=== PATIENT | female | born 1990 | race Caucasian/White ===

== ENCOUNTER 2025-01-23 18:34 | Emergency (ER) | payer OTHER ==
[~2025-01-23] VITALS: Ht 162.6 cm; Wt 61.4 kg
[2025-01-23 21:20] VITALS: TEMP 98.1
[2025-01-23] MEDS: PERTUSS(ACELL),DIPH,TET/PF 0.5 ML SYRINGE [ADULT] IM. ONE (21:47)
[2025-01-23] MEDS: IBUPROFEN 600 MG TABLET PO ONE (21:51)
[2025-01-23 23:45] VITALS: BP 115/70; PULSE 81; RESP 14; O2SAT 99
[2025-01-23] MEDS: BACITRACIN 0.9 GM PACKET OINTMENT TP ONE (23:59)
== END 2025-01-24 00:04 ==
LOC: EMS 18:34
DX: S61.212A Laceration without foreign body of right middle finger without damage to nail, initial encounter (principal); S61.214A Laceration without foreign body of right ring finger without damage to nail, initial encounter; W22.09XA Striking against other stationary object, initial encounter; Y93.89 Activity, other specified; Y92.89 Other specified places as the place of occurrence of the external cause; Y99.8 Other external cause status
CPT/HCPCS: 90471; 90715; 99283